=== PATIENT | female | born 2000 | race Caucasian/White ===

== ENCOUNTER 2019-12-02 18:02 | Emergency (ER) | payer BC ==
[~2019-12-02] VITALS: Ht 165.1 cm; Wt 57.3 kg
[2019-12-02 18:08] VITALS: TEMP 98
[2019-12-02 18:37] LABS: HEMATOCRIT 49.4 % (35.0-45.0); HEMOGLOBIN 16.7 g/dl (12.0-15.0); MEAN CELL VOLUME 89 fl (80.0-95.0); MEAN CORPUSCULAR HEMOGLOBIN 30 pg (26.0-32.0); MEAN CORPUSCULAR HGB CONC 34 g/dl (33.0-37.0); MEAN PLATELET VOLUME 9.2 fl (7.4-10.4); PLATELET COUNT 391 K/mm3 (130-400); RED BLOOD COUNT 5.55 M/mm3 (4.10-5.30); REDCELL DISTRIBUTION WIDTH-CV 12.2 % (11.5-14.5)
[2019-12-02 18:52] LABS: ALBUMIN 5.1 gm/dL (3.5-5.0); BILIRUBIN,TOTAL 1.3 mg/dL (0.0-1.0); C-REACTIVE PROTEIN 1.3 mg/dL (0.0-0.9); CALCIUM 9.6 mg/dL (8.4-10.2); CREATININE, serum 0.65 (0.52-1.25); POTASSIUM 4.3 mmol/L (3.4-5.0); TOTAL PROTEIN 8.8 gm/dL (6.4-8.2)
[2019-12-02 19:16] LABS: LYMPHOCYTE 3 % (20.0-51.0); NEUTROPHILS 95 % (42.0-75.2)
[2019-12-02 20:16] LABS: COLLECTION METHOD CLEAN CATCH
[2019-12-02 20:27] LABS: MUCOUS Present /lpf; PH 5 (5-8); SQUAMOUS EPITHELIAL 0-2 /hpf; URINE APPEARANCE Hazy; URINE BACTERIA None Seen /hpf; URINE BILIRUBIN Negative (NEGATIVE); URINE BLOOD Negative (NEGATIVE); URINE COLOR Yellow; URINE GLUCOSE Negative (NEGATIVE); URINE KETONE 2+ (NEGATIVE); URINE LEUKOCYTE ESTERASE Negative (NEGATIVE); URINE NITRATE Negative (NEGATIVE); URINE PROTEIN(semi-quant) 1+ (NEGATIVE); URINE RBC 0-2 /hpf; URINE UROBILINOGEN Negative (NEGATIVE)
[2019-12-02] MEDS ORDERED: ZOFRAN ODT4 MG PO (20:46)
[2019-12-02 23:20] VITALS: BP 97/62; PULSE 106
== END 2019-12-02 23:20 | disposition home or self-care (01) ==
LOC: COL.ER 18:02
PROVIDERS: Nurse Practitioner
DX: R11.2 Nausea with vomiting, unspecified (principal); R19.7 Diarrhea, unspecified; Z90.49 Acquired absence of other specified parts of digestive tract; Z88.0 Allergy status to penicillin
CPT/HCPCS: J1885; J2550; J7030

== ENCOUNTER 2022-08-22 14:00 | Emergency (ER) | payer BC ==
[~2022-08-22] VITALS: Ht 165.1 cm; Wt 70.5 kg
[~2022-08-22 14:00] MED LIST: ZOFRAN ODT4 MG PO
[2022-08-22 14:08] VITALS: TEMP 97
[2022-08-22 15:01] LABS: BASO % 0.4 % (0.0-2.0); EOS # 0.2 K/mm3 (0.0-0.7); EOS % 1.5 % (0.0-4.0); GRAN # 8.2 K/mm3 (1.4-6.5); HEMATOCRIT 42.8 % (37.0-47.0); HEMOGLOBIN 14.4 g/dl (12.5-16.0); LYMPH # 1.1 K/mm3 (1.2-3.4); LYMPH % 10.6 % (20.0-51.0); MEAN CELL VOLUME 90 fl (80.0-100.0); MEAN CORPUSCULAR HEMOGLOBIN 30 pg (27-31); MEAN CORPUSCULAR HGB CONC 34 g/dl (33.0-37.0); MEAN PLATELET VOLUME 8.9 fl (7.4-10.4); MONO # 0.6 K/mm3 (0.1-0.6); MONO % 6.2 % (1.7-9.3); PLATELET COUNT 388 K/mm3 (130-400); RED BLOOD COUNT 4.76 M/mm3 (4.10-5.30); REDCELL DISTRIBUTION WIDTH-CV 13.1 % (11.5-14.5)
[2022-08-22 15:18] LABS: ALBUMIN 3.5 gm/dL (3.5-5.0); BILIRUBIN,TOTAL 0.7 mg/dL (0.2-1.2); C-REACTIVE PROTEIN 1.58 mg/dL (0.00-0.50); CALCIUM 8.8 mg/dL (8.4-10.2); CREATININE, serum 0.67 mg/dL (0.57-1.11); TOTAL PROTEIN 6.7 gm/dL (6.2-8.1)
[2022-08-22 15:55] LABS: COLLECTION METHOD CLEAN CATCH
[2022-08-22 15:58] LABS: PH 5.5 (5.0-8.5); URINE APPEARANCE Clear (CLEAR/HAZY); URINE BLOOD 1+ (NEGATIVE); URINE COLOR Yellow (YELLOW); URINE GLUCOSE Negative (NEGATIVE); URINE KETONE Negative (NEGATIVE); URINE NITRATE Negative (NEGATIVE); URINE PROTEIN(semi-quant) Negative (NEGATIVE); URINE UROBILINOGEN 0.2 E.U/dL (0.2-1.0)
[2022-08-22 16:02] LABS: MUCOUS Present (NOT PRESENT); SQUAMOUS EPITHELIAL 0-2 /hpf (0-10); URINE BACTERIA Moderate /hpf (NONE SEEN); URINE RBC 0-2 /hpf (0-2)
[2022-08-22] MEDS ORDERED: ZOFRAN ODT4 MG PO (16:28)
[2022-08-22 17:04] VITALS: BP 127/81; PULSE 99
== END 2022-08-22 17:04 | disposition home or self-care (01) ==
LOC: COL.ER 14:00
PROVIDERS: Physician Assistant
DX: R11.2 Nausea with vomiting, unspecified (principal); R19.7 Diarrhea, unspecified; R10.31 Right lower quadrant pain; Z32.02 Encounter for pregnancy test, result negative
CPT/HCPCS: J1885; J2270; J2405; J7030; Q9967